=== PATIENT | male | born 1950 | race Caucasian/White ===

== ENCOUNTER → 2021-03-16 13:27 | Outpatient (BNVA) | payer MEDICARE, SELFPAY | PROVIDERS: PCP Family Medicine; Referring Provider Family Medicine; Visit Provider Surgery | DX: K42.9 Umbilical hernia without obstruction or gangrene (principal); I10 Essential (primary) hypertension | CPT/HCPCS: 99202; 99203 ==

== ENCOUNTER 2021-03-30 03:36 | Outpatient (CLI) | payer MEDICARE, SELFPAY ==
[2021-03-30 10:18] LABS: Source Nasal/Nares
[2021-03-30 13:17] LABS: COVID-19 PCR Negative (Negative)
== END 2021-03-30 03:37 | disposition home or self-care (01) ==
LOC: LBO 03:36
PROVIDERS: PCP Family Medicine; Visit Provider Surgery
DX: Z20.822 Contact with and (suspected) exposure to COVID-19 (principal); Z01.818 Encounter for other preprocedural examination
CPT/HCPCS: 87635

== ENCOUNTER 2021-03-31 08:02 | Day surgery (SDC) | payer MEDICARE, SELFPAY ==
[2021-03-31] VITALS (8 sets, daily range): BP systolic 97–147; BP diastolic 58–92; PULSE 43–54; RESP 13–16; TEMP 36.4–36.8; O2SAT 96–100; BMI 27.1
--- NOTE | 2021-03-31 06:23 | ANES.PREOP_ITS ---
General Info Date of Service Date Performed: 03/31/21 Height: 6 ft 4 in Weight: 101.378 kg Body Mass Index (BMI): 27.1 Surgical Procedure: Operation Date: 03/31/21 09:10 Proposed Procedures Side Surgeon p Herniorrhaphy Umbilical w/mesh Zohreh Soto, DO Meds Allergies and Home Medications Allergies Allergy/AdvReac Type Severity Reaction Status Date / Time No Known Allergies Allergy Verified 03/31/21 08:11 Home Medication Medication Instructions Recorded naproxen sodium 220 mg capsule 220 mg PO BID PRN 02/04/21 multivitamin 1 tab PO .week tab 03/16/21 tramadol 50 mg PO Q6H PRN #10 tab 03/31/21 Current Visit Medications: Current Medications Generic Name Dose Route Start Last Admin Trade Name Freq PRN Reason Stop Dose Admin Acetaminophen 1,000 mg 03/31/21 06:00 Acetaminophen 500 Mg Tab PO 03/31/21 16:00 PREOP [place] Gabapentin 600 mg 03/31/21 06:00 Gabapentin 300 Mg Cap PO 03/31/21 16:00 PREOP [place] Ringer's Solution 1,000 mls @ 80 mls/hr 03/31/21 06:00 IV 04/29/21 23:59 INFUSION [place] Cefazolin Sodium/Dextrose 2 gm in 50 mls @ 100 mls/hr 03/31/21 06:00 Ancef Duplex IVPB 03/31/21 16:00 PREOP [place] IV Miscellaneous Supplies 1 each 03/31/21 06:00 Iv Access IV 04/29/21 23:59 DIRECTED [place] Sodium Chloride 0 ml 03/31/21 06:00 Normal Saline Flush 10 Ml Syr IV 04/29/21 23:59 PRN PRN Sodium Chloride 0 ml 03/31/21 06:00 Normal Saline 10 Ml Vial IJ 04/29/21 23:59 DIRECTED PRN Sterile Water 0 ml 03/31/21 06:00 Water,Injection,Sterile 10 Ml Vial IJ 04/29/21 23:59 DIRECTED PRN PFSH Active Problems Active Problems: Problem Status Onset Code Umbilical hernia K42.9 History of heavy alcohol consumption Z87.898 Essential hypertension I10 Medical History Medical History BMI 30.0-30.9,adult Chronic allergic rhinitis Eczema Left retinal detachment Macrocytosis without anemia Musculoskeletal neck pain Surgical History Surgical History (Updated 03/31/21 @ 08:35 by Kate Pruitt RN) H/O arthroscopy of knee H/O detached retina repair History of appendectomy Tobacco Smoking/Tobacco Use Status: Never Alcohol Alcohol Intake: current Alcohol intake frequency: a few times a week Substance Use Substance use: Occasionally Substance use type: marijuana Vital Signs and Lab Results Lab Results Blood Type / Crossmatch: No Data to Display Complete Blood Count: No Data to Display Complete Metabolic Panel: No Data to Display Liver Function Panel: No Data to Display Coagulation Panel: No Data to Display Cardiac Panel: No Data to Display Arterial Blood Gas: No Data to Display Venous Blood Gas: No Data to Display Pancreas Panel: No Data to Display Thyroid Panel: 2 No Data to Display Infectious Disease: Coronavirus (COVID-19)(PCR) Negative (Negative) 03/30/21 08:55 03/30/21 Coronavirus 2019 Source Nasal/Nares 03/30/21 08:55 03/30/21 Blood Cultures: No Data to Display Toxicology Panel: No Data to Display Anesthesia Assessment and Plan Anesthesia History Personal History: No History of Anesthesia Complications Family History: No Family History of Anesthesia Complications Exercise Tolerance Exercise Tolerance: Metabolic Equivalents<4 Pertinent Negatives Pertinent Negatives: No Symptoms of GERD, No Major Cardiovascular Symptoms or Complaints, No Major Pulmonary Symptoms or Complaints and No History of CVA/TIA Cardiac & Pulmonary Exam Cardiac Exam: Normal S1/S2 Heart Sounds Pulmonary Exam: Clear Bilateral Breath Sounds Implantable Cardiac Device Does patient have a Pacemaker or an ICD?: No Airway Exam Known Difficult Airway: No Mallampati Class: 2 Mouth Opening: Normal (> 3cm) Thyromental Distance: Greater than 3 cm Neck Range of Motion: Full ROM Neck Circumference: Normal Teeth Condition: Normal Dentition (Working on a left upper root canal) ASA Classification ASA Score: ASA 2 Emergency Case?: No NPO Status NPO Status: NPO Clears >2 hours, Solids >8 hours Anesthesia Plan Resuscitation Status: Full Code Anesthesia Technique: General Anesthesia Airway Planned: LMA Pain Management: Surgeon and patient request nerve block (Bilateral rectus sheathe) Monitors Used: Standard Monitors Preoperative Comments:: 70 yo male for umbilical hernia repair. Sig PMHx: never smoker, occ EtOH, cannabis, HTN (no on meds)
--- NOTE | 2021-03-31 08:29 | W.PM.OP ---
Date of service: 03/31/21 Time of Service: 08:29 Operative Note Operative Note DATE OF PROCEDURE: 03/31/21 PRE-OP DIAGNOSIS: symp umbilical hernia POST-OP DIAGNOSIS: same PROCEDURE: open repair w/ mesh SURGEON: Zohreh Mccauley CLINICAL ENGINEERING MANAGER: Teresa Krause ANESTHESIA TYPE: Local By Surgeon, General LMA/ETT and Primary Nerve Block Refer to Anesthesia Record ESTIMATED BLOOD LOSS: 5 PATHOLOGY: none sent COMPLICATIONS: None Patient was transported to: PACU Patient's condition: stable Procedure Description: The pt is here today for symptomatic umbilical hernia and is here today for repair. Informed consent was obtained, explaining risks and benefits of the procedure including but not limited to bleeding, infection, pneumonia, blood clots, recurrence, chronic pain or chronic numbness, reaction to mesh necessitating removal, complications of anesthesia and other unforetold complications. DESCRIPTION OF PROCEDURE: The patient was brought to the operating suite and placed in supine position. Anesthesia was administered per the Department of Anesthesia. Patient prepped and draped in the usual sterile fashion using DuraPrep scrub solution. IV antibiotics were administered. Pause for the cause was done. 20cc of .25% Marcaine is used for local anesthetic. A 1-inch incision was made in the inferiorly to the umbilicus. Umbilicus was dissected off the fascia. The surrounding tissue is dissected off the fascia. Omentum is protruding through the defect. This was returned to the abdomen. It is not infarcted. A large Kerlix patch was then placed in the defect, the defect was closed, over sewn with 2-0 vicryl and was copiously irrigated. Deep tissues are instilled with 10 cc of Exparel prior to closure. Deep tissue was approximated with 3-0 Vicryl and skin was approximated with 4-0 Monocryl in a running subcuticular fashion. Skin glue was applied. The patient tolerated the procedure well without complications and was transferred to recovery room in stable condition. ZOHREH MCCAULEY DO
--- NOTE | 2021-03-31 08:30 | PDOC.DSDIS_ITS ---
Discharge Plan Disposition Patient Disposition: HOME Condition: Good Discharge Details Reason For Visit: hernia repair Attending Provider: Zohreh Soto Primary Care Provider: Roger Hodge Home Meds and New Rx's Prescriptions: New tramadol 50 mg tablet 50 mg PO Q6H PRNQty: 10 RF: 0 Continued naproxen sodium [Aleve] 220 mg capsule 220 mg PO BID PRNRF: 0 multivitamin [Multiple Vitamins] Tablet 1 tab PO .week RF: 0 Discharge Instructions Additional Instructions: Dr. Soto HERNIA REPAIR ? POSTOPERATIVE INSTRUCTIONS Patients who have this type of surgery can usually be expected to return to work within two weeks and have minimal amounts of discomfort. ? ACTIVITY: The day of surgery should be spent resting. However, you can be up for short periods of time, I.E., going to the bathroom or kitchen. Avoid lifting or straining. On the day following surgery, you can be up and about as desired. ? LIFTING: Restrict your lifting to no more than five (5) pounds for the first week following surgery. For the second week after surgery, don?t lift more than ten pounds. We will decide when you are done with restrictions and when you can return to work, at your follow-up appointment. No sexual activity for two weeks. ? DIET: There are no dietary restrictions following surgery. However, you may want to start with small amounts of liquids to avoid nausea the day of surgery. ? INCISION CARE: You will notice purple skin glue closing the incision. Do not peel this off- it will wear off on its own. After 24 hours you may shower. The dressing may be replaced for comfort, but is not necessary. An ice bag may be applied to the incision for 72 hours following surgery. ? SIGNS OF INFECTION: It is not unusual to have some black and blue discoloration of the skin around the incision. It will slowly disappear. If you have any increased redness, drainage, fever (above 100 degrees), please co ntact your doctor for an examination. ? DISCOMFORT: You may expect to have some mild discomfort at the incision sight. If severe pain develops you should contact your doctor for further instructions. ? URINATION: Patients who have surgery occasionally have problems urinating. If you experience problems and are not able to urinate within 6 hours following your surgery, please call your doctor immediately or go to your nearest Emergency Room for evaluation. ? DRIVING: NO driving for three (3) days after surgery, or if you are still taking narcotic pain medication. ? MEDICATIONS: Alternate Tylenol 1000mg by mouth every 8 hours and Ibuprofen 600mg every 6 hours. Make sure you take ibuprofen with food and not on an empty stomach. Take the Tylenol and ibuprofen continuously for the first 72hrs- not just when you have pain. Use the tramadol for breakthrough pain. Use ICE! Twenty minutes on, and then off, continuously for the first 72hours. If you are taking narcotic pain medication, follow the instructions on the label and do not drive. Pain medications can make you very constipated. Make sure you are moving your bowels daily. If not, take Miralax, milk of magnesia or magnesium citrate. Anesthesia makes you very constipated. Take a dose of milk of magnesia the morning after surgery. ? REPORT: Unusual swelling, severe pain, unresolved nausea, signs of infection, or difficulty in urination to your surgeon. Follow up in clinic with Dr. Soto in 2 weeks. [phone] Activity:: see above Remove Dressings/Wound Care:: 24 hours Shower/Bathe:: 24 hours Diet:: As Tolerated Discharge Orders Discharge Orders: Discharge Order (Routine); Ordered 03/31/21 Ordered By: Zohreh Soto DS: Diagnosis Discharge Diagnosis (1) Umbilical hernia: Status: Acute (2) Essential hypertension: Status: Acute
[2021-03-31] MEDS: Acetaminophen 500 MG TAB 1000 MG PO (08:36)
[2021-03-31] MEDS: Gabapentin 300 MG CAP 600 MG PO (08:36)
[2021-03-31] MEDS: Lactated Ringers 1,000 ML 80 ML IV (08:37)
[2021-03-31] MEDS: ceFAZolin 2 GM/50 ML BAG IVPB (09:01)
--- NOTE | 2021-03-31 09:16 | W.ANESNERVE ---
Nerve Block Single Injection Procedure Date and Time Date Performed: 03/31/21 Procedure Start: 09:08 Location Where Procedure Performed Procedure Location: Operating Room Procedure Stop: 09:13 Reason Performed: Postoperative Analgesia Requesting Provider: Zohreh Soto Timeout Performed Timeout Performed: Yes Monitoring Used ECG, Blood Pressure, SpO2 and ETCO2 Sterility Sterility: Hand Hygiene, Surgical Cap, Surgical Mask, Sterile Gloves and Sterile Drape/Sheet Sedation Given During Procedure Sedation Given (Indicate Dose Given): No Sedation given Patient Mental Status Patient Mental Status: Performed under general anesthesia Nerve Block 1st Nerve Block: Laterality: Bilateral Block Type: Rectus Sheath (Bilateral) Needle / Catheter Used: 100mm SonoPlex II Local Anesthetic Bolus (Indicate Dose Given): Injected in 3-5ml increments after negative blood aspiration, Half of Total block solution given into each side, Bupivacaine 0.375% Dose:: 30 mL and Exparel Dose:: 10 mL Additives (Indicate Dose Given): None Ultrasound: Sterile probe cover and gel used Ultrasound Image Saved?: Yes Nerve Stimulator: Not Used Paresthesia: None Procedure Tolerated: No Complications Procedure Outcome: Successful Performed By: Loki Raymundo
[2021-03-31] MEDS: Bupivacaine LIPOSOME/PF 133 MG/10 ML VIAL IJ (09:38)
[2021-03-31] MEDS: Bupivacaine 0.25% Pres-Free 30 ML VIAL (09:49)
--- NOTE | 2021-03-31 10:51 | W.ANESPOSTOP ---
Postoperative Evaluation Date, Time and Location Date Performed: 03/31/21 Time Performed: 10:51 Patient Location: Day Surgery Unit Vital Signs Most Recent Imported Vital Signs: Most Recent Vital Signs Temp Pulse Resp BP Pulse Ox 36.6 C 49 L 15 122/61 96 03/31/21 10:37 03/31/21 10:37 03/31/21 10:37 03/31/21 10:37 03/31/21 10:37 Pain Score Most Recent Pain Score: Most Recent Pain Score Pain Level 0 03/31/21 10:37 Assessment Mental Status: Awake (Alert & Oriented to Patient Baseline) Airway and Respiratory Function: Patent airway with normal (patient baseline) respiratory exam Cardiovascular Function: Hemodynamically Stable Hydration Status: Adequately Hydrated Nausea & Vomiting: No Nausea or Vomiting Pain: Pt. Denies Any Pain Peripheral Nerve Block: Patient did not receive a nerve block
== END 2021-03-31 12:04 | disposition home or self-care (01) ==
PROVIDERS: PCP Family Medicine; Visit Provider Surgery
PROC: (CPT 49585; principal; 2021-03-31 09:00)
DX: K42.9 Umbilical hernia without obstruction or gangrene (principal); I10 Essential (primary) hypertension
CPT/HCPCS: 49585; 76942; C1781; J0690; J1100; J1885; J2405; J2704

== ENCOUNTER → 2021-04-16 10:59 | Outpatient (BNVA) | payer MEDICARE, SELFPAY | PROVIDERS: PCP Family Medicine; Referring Provider Family Medicine; Visit Provider Surgery | DX: Z48.815 Encounter for surgical aftercare following surgery on the digestive system (principal); Z87.19 Personal history of other diseases of the digestive system ==